=== PATIENT | female | born 1990 | race Caucasian/White ===

== ENCOUNTER 2023-10-31 03:47 | Emergency (ER) | payer OTHER ==
[~2023-10-31] VITALS: Ht 157.5 cm; Wt 80.7 kg
[2023-10-31 03:58] VITALS: BP 120/89
[2023-10-31] MEDS ORDERED: Acetaminophen 500 MG Tab PO ONE (04:30)
[2023-10-31] MEDS ORDERED: Ketorolac Tromethamine 30mg Vial IV ONE (04:30)
[2023-10-31] MEDS ORDERED: Lidocaine 4% 1 Patch TOP ONE (04:35)
[2023-10-31 04:44] LABS: BASOPHILS ABSOLUTE AUTO 0.03 K/mm3 (0.00-0.23); BASOPHILS PERCENT AUTO 0 % (0-2); EOSINOPHILS ABSOLUTE AUTO 0.08 K/mm3 (0.00-0.68); EOSINOPHILS PERCENT AUTO 1 % (0-6); Hematocrit 39.3 % (33.0-51.0); Hemoglobin 13.1 g/dL (11.5-16.0); IMMATURE GRAN ABSOLUTE AUTO 0.04 K/mm3 (0.00-0.10); IMMATURE GRAN PERCENT AUTO 0 % (0-1); LYMPHOCYTES ABSOLUTE AUTO 2.64 K/mm3 (0.84-5.20); LYMPHOCYTES PERCENT AUTO 23 % (21-46); MONOCYTES PERCENT AUTO 7 % (4-13); Mean Corpuscular HGB Conc 33.3 g/dL (31.5-36.5); Mean Corpuscular Volume 93 fL (80-100); Mean Platelet Volume 11.4 fL (9.1-12.4); NEUTROPHILS ABSOLUTE AUTO 7.69 K/mm3 (1.96-9.15); NEUTROPHILS PERCENT AUTO 68 % (41-73); Platelet Count 229 K/mm3 (150-400); RDW Coefficient Variation 13.2 % (11.7-14.2); Red Blood Cell Count 4.22 M/mm3 (3.80-5.20); White Blood Cell Count 11.28 K/mm3 (4.00-11.30)
[2023-10-31 05:11] LABS: Albumin, Blood 3.8 g/dL (3.4-5.0); Albumin/Globulin Ratio 0.9 (0.8-1.8); Bilirubin, Total 0.6 mg/dL (0.1-1.0); Bun/Creatinine Ratio 23.9 (12.0-20.0); Calcium, Blood 9.1 mg/dL (8.5-10.1); Creatinine, Blood 0.67 mg/dL (0.40-1.00); Globulin, Blood 4.1 g/dL (2.2-4.0); Potassium, Blood 3.7 mmol/L (3.5-5.5); Total Protein, Blood 7.9 g/dL (6.4-8.2)
[2023-10-31 05:14] LABS: Source, Urine Clean Catch
[2023-10-31 05:21] LABS: Appearance, Urine Hazy (Clear); Bilirubin, Urine Neg (Neg); Blood, Urine 4+ (Neg); Color, Urine Yellow (P-Yellow); Glucose Qualitative, Urine Neg (Neg); Ketones, Urine Neg (Neg); Leukocyte Esterase, Urine 2+ (Neg); Nitrite, Urine Neg (Neg); Protein, Urine 2+ (Neg); Urobilinogen, Urine NORM (Normal)
[2023-10-31 05:28] LABS: Bacteria Mod /hpf; Red Blood Cells, Urine 0-2 /hpf (0-2); Squamous Epithelial Cells Few /hpf (Few); Transitional Epithelial Cells Few /hpf (0-Rare); White Blood Cells, Urine 50-100 /hpf (0-5)
[2023-10-31] MEDS ORDERED: CEPH500 PO (06:10)
[2023-10-31] MEDS ORDERED: Cephalexin Monohydrate 500 MG Cap PO ONE (06:10)
== END 2023-10-31 06:27 | disposition home or self-care (01) ==
LOC: ER 03:47
PROVIDERS: Emergency Medicine
DX: N39.0 Urinary tract infection, site not specified (principal); Z88.0 Allergy status to penicillin; Z88.2 Allergy status to sulfonamides; Z91.040 Latex allergy status; Z91.041 Radiographic dye allergy status
CPT/HCPCS: 80053; 81001; 84703; 85025; 87077; 87086; 87186; 99284-25; A9270; J1885

== ENCOUNTER 2024-09-19 22:06 | Emergency (ER) | payer OTHER ==
[~2024-09-19] VITALS: Ht 154.9 cm; Wt 88.5 kg
[~2024-09-19 22:06] MED LIST: CEPH500 PO
[2024-09-19 22:30] VITALS: BP 129/99
[2024-09-19 23:15] LABS: CORONAVIRUS COVID-19 AG Negative (NEGATIVE); INFLUENZA A AG Negative (NEGATIVE); INFLUENZA B AG Negative (NEGATIVE)
[2024-09-19] MEDS ORDERED: Ondansetron 4 MG SoluTab SL ONE (23:35)
[2024-09-19] MEDS ORDERED: RX Prepack 2 Tabs Ondansetron ODT 4MG UD ONE (23:35)
[2024-09-19] MEDS ORDERED: ONDA4ODT MM (23:36)
== END 2024-09-19 23:41 | disposition home or self-care (01) ==
LOC: ER 22:06
PROVIDERS: Student in an Organized Health Care Education/Training Program
DX: B34.9 Viral infection, unspecified (principal); Z88.0 Allergy status to penicillin; Z88.2 Allergy status to sulfonamides; Z91.040 Latex allergy status; Z91.041 Radiographic dye allergy status; Z11.52 Encounter for screening for COVID-19
CPT/HCPCS: 87428-QW; 99283; A9270